=== PATIENT | male | born 1985 | race Caucasian/White ===

== ENCOUNTER 2023-08-04 20:59 | Emergency (ER) | payer SELFPAY ==
[~2023-08-04] VITALS: Ht 167.6 cm; Wt 68.0 kg
[2023-08-04 21:12] VITALS: BP 132/100; PULSE 82; RESP 20; TEMP 97.5; O2SAT 99
== END 2023-08-04 21:54 ==
LOC: MED 20:59
DX: Z02.89 Encounter for other administrative examinations (principal); F15.10 Other stimulant abuse, uncomplicated
CPT/HCPCS: 99283